=== PATIENT | female | born 1975 | race Caucasian/White ===

== ENCOUNTER 2018-10-12 18:54 | Emergency (ER) | payer SELFPAY ==
[2018-10-12 19:45] VITALS: BP 124/58
[2018-10-12 20:08] LABS: APPEARANCE,URINE SLIGHTLY-CLOUDY; BILIRUBIN,URINE NEGATIVE (NEGATIVE); COLOR,URINE YELLOW; GLUCOSE, URINE NEGATIVE (NEGATIVE); KETONES,URINE NEGATIVE (NEGATIVE); LEUKOCYTE ESTERASE,URINE SMALL (NEGATIVE); NITRITE,URINE NEGATIVE (NEGATIVE); PROTEIN,URINE NEGATIVE (NEGATIVE); URINE SPECIFIC GRAVITY 1.024
--- NOTE | 2018-10-12 20:32 | ER Document Report ---
ED GI/ - General Chief Complaint: Urinary Problem Stated Complaint: URINARY ISSUE Time Seen by Provider: 10/12/18 19:52 Primary Care Provider: [facility] [Provider Group] - Follow up as needed Mode of Arrival: Ambulatory Information source: Patient Notes: 43-year-old female presents to ED for complaint of burning frequency and urgency with urine for 2 weeks. She states she has had a lot of vaginal irritation. She states she has not had any vaginal discharge she is just had severe vaginal itching and burning. She states she uses a vaginal douche monthly and has for her whole life. She states she has not been physically active for about 2 months. She states she moved to [place] in the beginning of August and does not have a [facility] care doctor has not been to a doctor. TRAVEL OUTSIDE OF THE [place] IN LAST 30 DAYS: No - HPI Patient complains to provider of: Vaginal pain, Other - Burning pain and irritation with urination times 2 weeks Onset: Other Timing/Duration: Gradual - 2 weeks, Worse Quality of pain: Burning Severity at maximum: Severe Severity in ED: Severe Pain Level: 5 Location: Vaginal Vaginal bleeding (Compared to normal period): None Associated symptoms: Urinary frequency, Other - Vaginal pain and burning worse with urination Exacerbated by: Other - Urination Relieved by: Denies Similar symptoms previously: Yes Recently seen / treated by doctor: No - Related Data Allergies/Adverse Reactions: No Known Allergies Allergy (Unverified 10/12/18 18:57) Past Medical History - General Information source: Patient - Social History Smoking Status: Never Smoker Frequency of alcohol use: None Drug Abuse: None Occupation: none Lives with: Family - daughter Family History: Reviewed & Not Pertinent Patient has suicidal ideation: No Patient has homicidal ideation: No - Past Medical History Cardiac Medical History: Reports: None Pulmonary Medical History: Reports: None EENT Medical History: Reports: None Neurological Medical History: Reports: None Endocrine Medical History: Reports: None Renal/ Medical History: Reports: None Malignancy Medical History: Reports: None GI Medical History: Reports: None Musculoskeletal Medical History: Reports None Skin Medical History: Reports None Psychiatric Medical History: Reports: None Traumatic Medical History: Reports: None Infectious Medical History: Reports: None Past Surgical History: Reports: Hx Gastric Bypass Surgery - Immunizations Immunizations up to date: Yes Hx Diphtheria, Pertussis, Tetanus Vaccination: Yes Review of Systems - Review of Systems Constitutional: No symptoms reported EENT: No symptoms reported Cardiovascular: No symptoms reported Respiratory: No symptoms reported Gastrointestinal: No symptoms reported Genitourinary: Burning, Frequency Female Genitourinary: Other - vaginal burning and irritation Musculoskeletal: No symptoms reported Skin: No symptoms reported Hematologic/Lymphatic: No symptoms reported Neurological/Psychological: No symptoms reported -: Yes All other systems reviewed and negative Physical Exam - Vital signs Vitals: Temp Pulse Resp BP Pulse Ox 98.8 F 92 16 124/58 L 100 10/12/18 19:38 10/12/18 19:38 10/12/18 19:38 10/12/18 19:38 10/12/18 19:38 Interpretation: Normal - General General appearance: Appears well, Alert - HEENT Head: Normocephalic, Atraumatic Eyes: Normal Pupils: PERRL - Respiratory Respiratory status: No respiratory distress Chest status: Nontender Breath sounds: Normal Chest palpation: Normal - Cardiovascular Rhythm: Regular Heart sounds: Normal auscultation Murmur: No - Abdominal Inspection: Normal Distension: No distension Bowel sounds: Normal Tenderness: Nontender Organomegaly: No organomegaly - Genitourinary External exam: Other - Erythematous Speculum exam: Normal, Cervix closed. No: Vaginal discharge, Lesions Vaginal bleeding: Mild Bimanuel exam: Normal - Back Back: Normal, Nontender - Extremities General upper extremity: Normal inspection, Nontender, Normal color, Normal ROM, Normal temperature General lower extremity: Normal inspection, Nontender, Normal color, Normal ROM, Normal temperature, Normal weight bearing. No: Kg's sign - Neurological Neuro grossly intact: Yes Cognition: Normal Orientation: AAOx4 Darshan Coma Scale Eye Opening: Spontaneous Darshan Coma Scale Verbal: Oriented Darshan Coma Scale Motor: Obeys Commands Darshan Coma Scale Total: 15 Speech: Normal Motor strength normal: LUE, RUE, LLE, RLE Sensory: Normal - Psychological Associated symptoms: Normal affect, Normal mood - Skin Skin Temperature: Warm Skin Moisture: Dry Skin Color: Normal Course - Re-evaluation Re-evalutation: 10/12/18 22:37 Dr. reyes recommended Premarin cream and 1% hydrocortisone to the vaginal area for her discomfort. Patient was given these recommendations as well as list of local doctors and [facility] CARE WORKER providers. Patient was also instructed to please stop using her douche every month. She was also instructed to use fragrance free soaps to this area. Patient was discharged home. - Vital Signs Vital signs: Temp Pulse Resp BP Pulse Ox 98.8 F 92 16 124/58 L 100 10/12/18 19:38 10/12/18 19:38 10/12/18 19:38 10/12/18 19:38 10/12/18 19:38 - Laboratory Laboratory results interpreted by me: 10/12/18 19:40 Urine Urobilinogen 4.0 H Ur Leukocyte Esterase SMALL H Discharge - Discharge Clinical Impression: Vaginal irritation Condition: Stable Disposition: HOME, SELF-CARE Instructions: Family Physicians / Practices Additional Instructions: You were seen today for vaginal irritation. Your urine was negative for a UTI. Your wet mount was negative for bacterial vaginosis, Trichomonas, or yeast infection. I have also sent a swab for gonorrhea and chlamydia these would not be back for about 2-1/2 hours. I will not be here at that time. I will be back tomorrow from 9 AM to 9 PM. You can call me at [phone] and asked to speak to Popeye and I will give you the results. Written you a prescription for Premarin vaginal cream which should help with the irritation. He can also use hydrocortisone cream 1% which is [id number]. Please do not use any scented soaps in this area. Please stop using vaginal douches as this is killing all of the helpful bacteria in the area. I have given you a list of the local primary doctors and the DIRECTOR EXPORT in the area for follow-up. Vaginal estrogen therapy Low-dose vaginal estrogen is the most effective treatment for moderate to severe symptoms of vaginal atrophy. Use of estrogen therapy is appropriate for women with symptoms of vaginal atrophy in the setting of low estrogen levels, provided that there are no contraindications to this therapy (eg, some women with estrogen-dependent tumors). Adequate estrogen therapy leads to uatsdin of the normal vaginal acidic pH and microflora, thickening of the epithelium, increased vaginal secretions, and decreased vaginal dryness and resultant dyspareunia. In addition, estrogen therapy is associated with urinary tract benefits. These include a reduction in the incidence of urinary tract infections and overactive bladder symptoms. Urgency and stress urinary incontinence, however, do not improve with estrogen therapy alone . Adverse effects of vaginal estrogen therapy are uncommon. Women may complain of vaginal irritation, vaginal bleeding, or breast tenderness. FOLLOW-UP CARE: If you have been referred to a physician for follow-up care, call the physicians office for an appointment as you were instructed or within the next two days. If you experience worsening or a significant change in your symptoms, notify the physician immediately or return to the Emergency Department at any time for re-evaluation. Prescriptions: Estrogens,Conjugated [Premarin Vaginal Cream (0.625 mg/gm) 30 gm] 30 gm VG QHS #1 tube Referrals: [facility] [Provider Group] - Follow up as needed
[2018-10-12 21:11] LABS: EPITHELIALS (WET MOUNT) 3+ EPITHELIALS SEEN; T.VAGINALIS (WET MOUNT) NO TRICHOMONAS SEEN; WBCS (WET MOUNT) RARE WBCS SEEN; YEAST (WET MOUNT) NO YEAST SEEN
[2018-10-12 22:33] LABS: CHLAM PCR NOT DETECTED (NOT DETECT); GON PCR NOT DETECTED (NOT DETECT)
== END 2018-10-12 21:34 | disposition home or self-care (01) ==
LOC: ER 18:54
DX: R10.2 Pelvic and perineal pain (principal); R30.0 Dysuria; L29.9 Pruritus, unspecified; R35.0 Frequency of micturition; R39.15 Urgency of urination; Z98.84 Bariatric surgery status
CPT/HCPCS: 81001; 87210; 87491; 87591; 99283

== ENCOUNTER 2018-10-20 16:12 | Emergency (ER) | payer SELFPAY ==
--- NOTE | 2018-10-20 18:42 | ER Document Report ---
ED Medical Screen (RME) - General Chief Complaint: Vaginal Pain Stated Complaint: VAGINAL PAIN Time Seen by Provider: 10/20/18 18:28 Notes: 43 female who was here on October 12 for vaginal burning and itching comes back to the emergency department with no relief from her symptoms. Patient was prescribed Premarin cream and told to put hydrocortisone on her labia and she states that hydrocortisone made it worse and the Premarin cream is not working. She is still complaining of acute itching and burning sensation. She states her labia feel "hard like when you get scabs". She denies fever, chills, nausea, vomiting, urinary symptoms, vaginal discharge, vaginal bleeding. I have greeted and performed a rapid initial assessment of this patient. A comprehensive ED assessment and evaluation of the patient, analysis of test results and completion of medical decision making process will be conducted by an additional ED providers. TRAVEL OUTSIDE OF THE [place] IN LAST 30 DAYS: No - Related Data Allergies/Adverse Reactions: No Known Allergies Allergy (Verified 10/20/18 16:13) Past Medical History - Social History Frequency of alcohol use: None Drug Abuse: None - Past Medical History Cardiac Medical History: Reports: Hx Hypercholesterolemia, Hx Hypertension Endocrine Medical History: Reports: Hx Diabetes Mellitus Type 2 - borderline Renal/ Medical History: Denies: Hx Peritoneal Dialysis Past Surgical History: Reports: Hx Abdominal Surgery - gastric bypass, Hx Gastric Bypass Surgery, Hx Tonsillectomy - Immunizations Immunizations up to date: Yes Hx Diphtheria, Pertussis, Tetanus Vaccination: Yes Physical Exam - Vital signs Vitals: Temp Pulse Resp BP Pulse Ox 98.7 F 95 16 116/72 100 10/20/18 16:23 10/20/18 16:23 10/20/18 16:23 10/20/18 16:23 10/20/18 16:23 Course - Vital Signs Vital signs: Temp Pulse Resp BP Pulse Ox 98.7 F 95 16 116/72 100 10/20/18 16:23 10/20/18 16:23 10/20/18 16:23 10/20/18 16:23 10/20/18 16:23
[2018-10-20 20:05] VITALS: BP 126/70
--- NOTE | 2018-10-20 20:47 | ER Document Report ---
HPI - HPI Patient complains to provider of: Labial itching Time Seen by Provider: 10/20/18 18:28 Onset: Other - 3 weeks Onset/Duration: Worse Quality of pain: Burning Pain Level: 5 Context: Patient presents with a 3-week history of itching and burning to the labia. Patient denies any new foods medications or detergents. Patient states she was seen here for this problem 8 days ago was given a prescription of Premarin cream as well as advised to use [id number] steroid cream. Patient states that the steroid medication made her symptoms worsen so she stopped it 2 days ago. Patient denies any improvement with the Premarin cream. Associated Symptoms: denies: Fever Exacerbated by: Denies Relieved by: Denies Similar symptoms previously: No Recently seen / treated by doctor: Yes - ROS ROS below otherwise negative: Yes Systems Reviewed and Negative: Yes All other systems reviewed and negative - CONSTITUTIONAL Constitutional: DENIES: Fever - REPRODUCTIVE Reproductive: DENIES: : - DERM Skin Color: Erythema Skin Problems: Rash Past Medical History - General Information source: Patient - Social History Smoking Status: Never Smoker Frequency of alcohol use: None Drug Abuse: None Occupation: none Lives with: Family Family History: Reviewed & Not Pertinent Patient has suicidal ideation: No Patient has homicidal ideation: No Renal/ Medical History: Denies: Hx Peritoneal Dialysis Past Surgical History: Reports: Hx Abdominal Surgery - gastric bypass, Hx Gastric Bypass Surgery, Hx Tonsillectomy - Immunizations Immunizations up to date: Yes Hx Diphtheria, Pertussis, Tetanus Vaccination: Yes Vertical Provider Document - CONSTITUTIONAL Agree With Documented VS: Yes Exam Limitations: No Limitations General Appearance: WD/WN, No Apparent Distress - INFECTION CONTROL TRAVEL OUTSIDE OF THE [place] IN LAST 30 DAYS: No - HEENT HEENT: Atraumatic, Normocephalic - NECK Neck: Normal Inspection - RESPIRATORY Respiratory: Breath Sounds Normal, No Respiratory Distress - CARDIOVASCULAR Cardiovascular: Regular Rate, Regular Rhythm - REPRODUCTIVE Female Genitalia: Abnormal Inspection - Patient with mild erythema, tenderness and chapped appearance to the labia minora, no obvious ulcerations - BACK Back: Normal Inspection - MUSCULOSKELETAL/EXTREMETIES Musculoskeletal/Extremeties: ANDRES BROCK - NEURO Level of Consciousness: Awake, Alert, Appropriate Motor/Sensory: No Motor Deficit - DERM Integumentary: Warm, Dry Course - Re-evaluation Re-evalutation: 10/20/18 20:[address] Herrera who recommends treating with nystatin and referring to [facility] for further evaluation. - Vital Signs Vital signs: Temp Pulse Resp BP Pulse Ox 98.7 F 80 18 126/70 H 100 10/20/18 20:02 10/20/18 20:02 10/20/18 20:02 10/20/18 20:02 10/20/18 20:02 Discharge - Discharge Clinical Impression: Labial irritation Condition: Stable Disposition: HOME, SELF-CARE Instructions: Topical Antifungal ([facility]) Additional Instructions: Return immediately for any new or worsening symptoms Followup with your primary care provider, call tomorrow to make a followup appointment Follow-up with a [facility] provider for recheck Prescriptions: Nystatin [Mycostatin Cream 15 gm] 1 applic TP BID #30 gm Referrals: [facility] [Provider Group] - Follow up as needed [facility] [Provider Group] - Follow up as needed [facility] [Provider Group] - Follow up tomorrow
[2018-10-20] MEDS ORDERED: FLUCONAZOLE 100 MG TABLET PO ONE (21:13)
== END 2018-10-20 21:23 | disposition home or self-care (01) ==
LOC: ER 16:12
DX: R21 Rash and other nonspecific skin eruption (principal); R20.8 Other disturbances of skin sensation
CPT/HCPCS: 82962; 87250; 99283

== ENCOUNTER 2019-03-14 09:04 | Emergency (ER) | payer SELFPAY ==
[2019-03-14] MEDS ORDERED: ACETAMINOPHEN 325 MG TABLET PO ONE (10:02)
--- NOTE | 2019-03-14 10:04 | ER Document Report ---
ED Medical Screen (RME) - General Chief Complaint: Abdominal Pain Stated Complaint: ABDOMINAL PAIN,VOMITING Time Seen by Provider: 03/14/19 09:57 Mode of Arrival: Ambulatory Information source: Patient Notes: Patient presents to the emergency department with complaints of epigastric pain for the last week. Reports history of gastric bypass 4 years ago. Reports since that time she has had trouble with bleeding ulcers. She reports she has been evaluated and treated for these ulcers at [facility]. She reports it is normal for her to vomit on a regular basis. She is noted some blood in it for the last for 5 days but not as bad as it usually is. Patient just moved to [place] and does not have a primary care provider yet. Denies fever diarrhea. I have greeted and performed a rapid initial assessment of this patient. A comprehensive ED assessment and evaluation of the patient, analysis of test results and completion of the medical decision making process will be conducted by additional ED providers. Dictation of this chart was performed using voice recognition software; therefore, there may be some unintended grammatical errors. TRAVEL OUTSIDE OF THE [place] IN LAST 30 DAYS: No - Related Data Allergies/Adverse Reactions: lidocaine Allergy (Verified 03/14/19 10:00) tetanus immune globulin Allergy (Verified 03/14/19 10:00) Past Medical History - Past Medical History Cardiac Medical History: Reports: Hx Hypercholesterolemia, Hx Hypertension Endocrine Medical History: Reports: Hx Diabetes Mellitus Type 2 - borderline Renal/ Medical History: Denies: Hx Peritoneal Dialysis Past Surgical History: Reports: Hx Abdominal Surgery - gastric bypass, Hx Gastric Bypass Surgery, Hx Tonsillectomy - Immunizations Immunizations up to date: Yes Hx Diphtheria, Pertussis, Tetanus Vaccination: Yes Physical Exam - Vital signs Vitals: Temp Pulse Resp BP Pulse Ox 98.0 F 92 16 136/69 H 98 03/14/19 09:20 03/14/19 09:20 03/14/19 09:20 03/14/19 09:20 03/14/19 09:20 Course - Vital Signs Vital signs: Temp Pulse Resp BP Pulse Ox 98.0 F 92 16 136/69 H 98 03/14/19 09:20 03/14/19 09:20 03/14/19 09:20 03/14/19 09:20 03/14/19 09:20
[2019-03-14 10:43] LABS: ABSOLUTE BASOPHILS # (AUTO) 0.1 10^3/uL (0.0-0.2); ABSOLUTE EOSINOPHILS # (AUTO) 0.1 10^3/uL (0.0-0.6); ABSOLUTE LYMPHOCYTES (AUTO) 1.8 10^3/uL (0.5-4.7); ABSOLUTE MONOCYTES (AUTO) 0.4 10^3/uL (0.1-1.4); ABSOLUTE NEUT (AUTO) 4.1 10^3/uL (1.7-8.2); BASOPHILS % (AUTO) 1.4 % (0-2); EOSINOPHILS % (AUTO) 0.8 % (0-6); HEMATOCRIT 27.3 % (36.0-47.0); MEAN CORPUSCULAR HEMOGLOBIN 16.6 pg (27.0-33.4); MEAN CORPUSCULAR HGB CONC 29.2 g/dL (32.0-36.0); MONOCYTES % (AUTO) 6.4 % (3-13); PLATELET COUNT 691 10^3/uL (150-450); RED BLOOD COUNT 4.79 10^6/uL (3.72-5.28); RED CELL DISTRIBUTION WIDTH 20.3 % (11.5-14.0); SEGMENTED NEUTROPHILS % (AUTO) 63.4 % (42-78); TOTAL CELLS COUNTED % (AUTO) 100 %; WHITE BLOOD COUNT 6.5 10^3/uL (4.0-10.5)
[2019-03-14 10:44] LABS: APPEARANCE,URINE SLIGHTLY-CLOUDY; BILIRUBIN,URINE SMALL (NEGATIVE); COLOR,URINE YELLOW; GLUCOSE, URINE NEGATIVE (NEGATIVE); KETONES,URINE TRACE mg/dL (NEGATIVE); LEUKOCYTE ESTERASE,URINE MODERATE (NEGATIVE); NITRITE,URINE NEGATIVE (NEGATIVE); PROTEIN,URINE NEGATIVE (NEGATIVE); URINE SPECIFIC GRAVITY 1.041; UROBILINOGEN,URINE NEGATIVE mg/dL (<2.0)
[2019-03-14 10:50] LABS: MEAN CORPUSCULAR VOLUME 57 fl (80-97)
[2019-03-14 11:00] LABS: ALANINE AMINOTRANSFERASE 19 U/L (9-52); ALBUMIN 4.3 g/dL (3.5-5.0); ALKALINE PHOSPHATASE 70 U/L (38-126); ANION GAP 9 (5-19); ASPARTATE AMINO TRANSFERASE 29 U/L (14-36); BILIRUBIN,DIRECT 0.2 mg/dL (0.0-0.4); BILIRUBIN,TOTAL 0.7 mg/dL (0.2-1.3); BLOOD UREA NITROGEN 11 mg/dL (7-20); CARBON DIOXIDE 26 mmol/L (22-30); CHLORIDE 105 mmol/L (98-107); GLUCOSE 100 mg/dL (75-110); LIPASE 62.3 U/L (23-300); POTASSIUM 4.7 mmol/L (3.6-5.0); SODIUM 139.6 mmol/L (137-145); TOTAL PROTEIN 7.1 g/dL (6.3-8.2)
[2019-03-14 11:08] LABS: ANISOCYTOSIS 3+; HYPOCHROMASIA 1+
[2019-03-14 11:09] LABS: OVALOCYTES 1+; PLATELET COMMENT INCREASED; POIKILOCYTOSIS 2+; SCHISTOCYTES 1+; TARGET CELLS SLIGHT
--- NOTE | 2019-03-14 13:27 | ER Document Report ---
ED GI/ - General Chief Complaint: Abdominal Pain Stated Complaint: ABDOMINAL PAIN,VOMITING Time Seen by Provider: 03/14/19 09:57 Primary Care Provider: GEORGI LESLIE MD [ACTIVE STAFF] - Follow up as needed RANJITH OROZCO MD [ACTIVE STAFF] - Follow up as needed Mode of Arrival: Ambulatory Notes: Patient is here to be evaluated for abdominal pain that she said is been bothering her off and on since she had gastric bypass surgery in March 2015. She has pain and she has had problems with ulcers in the past. She had her primary surgery as well as follow-up care for several years at [facility] in [place]. She left that area and moved here in this past August. She did not get any of her medical records to bring with her. She did not get any medications before coming here. And she says that her current symptoms are the same that she is been having off and on for several years. Patient is not sure when she had last blood work and imaging done prior to her moving here. Patient has had nausea and occasional vomiting. She has not had any constipation. Has never seen any blood in her stools. Has not had any maroon appearing stools. Has not had any black, tarry stools. Patient pain in her abdomen is not localized, but located diffusely. She has not noted any fever. She has never had to get a blood transfusion. Patient says that she has lost about 160 pounds since she had her original surgery. Patient is currently on no medications at all. TRAVEL OUTSIDE OF THE [place] IN LAST 30 DAYS: No - Related Data Allergies/Adverse Reactions: lidocaine Allergy (Verified 03/14/19 10:00) tetanus immune globulin Allergy (Verified 03/14/19 10:00) Past Medical History - General Information source: Patient - Social History Smoking Status: Never Smoker Frequency of alcohol use: None Drug Abuse: None Lives with: Spouse/Significant other Family History: Reviewed & Not Pertinent Patient has suicidal ideation: No Patient has homicidal ideation: No - Past Medical History Cardiac Medical History: Reports: Hx Hypercholesterolemia, Hx Hypertension Endocrine Medical History: Reports: Hx Diabetes Mellitus Type 2 - borderline Past Surgical History: Reports: Hx Abdominal Surgery - gastric bypass, Hx Gastric Bypass Surgery, Hx Tonsillectomy - Immunizations Immunizations up to date: Yes Hx Diphtheria, Pertussis, Tetanus Vaccination: Yes Review of Systems - Review of Systems Notes: REVIEW OF SYSTEMS: CONSTITUTIONAL : Denies fever. Does not feel especially tired. Vital signs were all normal. No tachycardia. EENT: Denies eye, ear, nose or mouth or throat pain or other symptoms. CARDIOVASCULAR: Denies chest pain. RESPIRATORY: Denies cough, chest congestion, or shortness of breath. GASTROINTESTINAL: See HPI. GENITOURINARY: Denies difficulty or painful urinating, urinary frequency, blood in urine. MUSCULOSKELETAL: Denies back or neck pain. Denies joint pain or swelling. SKIN: Denies rash or skin lesions. NEUROLOGICAL: Denies LOC or altered mental status. Denies headache. Denies sensory loss or motor deficits. ALL OTHER SYSTEMS REVIEWED AND NEGATIVE. Physical Exam - Vital signs Vitals: Temp Pulse Resp BP Pulse Ox 98.0 F 92 16 136/69 H 98 03/14/19 09:20 03/14/19 09:20 03/14/19 09:20 03/14/19 09:20 03/14/19 09:20 Interpretation: Normal Notes: P PHYSICAL EXAMINATION: GENERAL: Well-appearing, in no acute distress. Vital signs are all essentially normal. Rakesh is able to slowly move from recumbent to sitting up and standing at the bedside. She walks very hesitantly as if she is in pain. She says is been this way for almost 4 years. HEAD: Atraumatic, normocephalic. EYES: Pupils equal round and reactive to light, extraocular movements intact. ENT: oropharynx clear without exudates. Moist mucous membranes. NECK: Normal range of motion, supple. LUNGS: Breath sounds clear and equal bilaterally. HEART: Regular rate and rhythm without murmurs. ABDOMEN: Soft, diffuse tenderness without any localized tenderness. No guarding and no rebound present. No masses felt. No bruits heard. BACK: No tenderness throughout entire back. EXTREMITIES: Normal range of motion without pain. NEUROLOGICAL: Normal speech, normal gait. Normal sensory, motor, and reflex exams. Awake, alert, and oriented x3. Cranial nerves normal. PSYCH: Normal mood, normal affect. SKIN: Warm, dry, no rashes. Course - Re-evaluation Re-evalutation: 03/14/19 18:52 Patient's hemoglobin of 8.0 is concerning, but the patient does not behave as if someone was losing blood rapidly. She is not tachycardic and she is not hypotensive. Additionally, patient says she is never seen any black stools, maroon stools, or blood in her stools. Another point is that the patient is never had to be transfused. I called the patient's primary care provider back in [place] and was able to find out the patient had a hemoglobin of 10.7 in May 2 years ago. I advised the patient that I would recommend getting a repeat lead count tomorrow and see if there is been a significant change. Of course, if patient has any indication that she is losing blood between now and tomorrow, she should come back here immediately and so explained to her. She is going get an outpatient CBC and call me for the results. Assuming that the hemoglobin remained stable, I have advised the patient that she needs to find a field nurse case manager to see her and take care of her. I have also very definitively told the patient that were not going to be providing pain medications on a regular basis and that she will need to have a primary care provider who does that. I have offered her a dozen Percocets to hold her in the meantime. She is agreeable with that plan. - Vital Signs Vital signs: Temp Pulse Resp BP Pulse Ox 98.2 F 92 15 136/72 H 99 03/14/19 14:12 03/14/19 14:12 03/14/19 14:12 03/14/19 14:12 03/14/19 14:12 - Laboratory Result Diagrams: 03/14/19 10:20 03/14/19 10:20 Laboratory results interpreted by me: 03/14/19 03/14/19 10:20 10:20 Hgb 8.0 L Hct 27.3 L MCV 57 L MCH 16.6 L MCHC 29.2 L RDW 20.3 H Plt Count 691 H Urine Ketones TRACE H Urine Bilirubin SMALL H Ur Leukocyte Esterase MODERATE H Discharge - Discharge Clinical Impression: Abdominal pain, History of gastric bypass, Anemia Condition: Stable Disposition: HOME, SELF-CARE Additional Instructions: ABDOMINAL PAIN: There are many causes of abdominal pain. Pain can mean a serious problem requiring surgery (such as appendicitis). It can also be an innocent problem that goes away on its own (such as a viral infection). Often, time must pass to determine the cause of pain. The physician does not feel that hospitalization is necessary, at present. Things may change within the next 24 hours. Call the doctor or come back for re- examination if any problems occur, such as: (1) Pain that becomes more severe, steady, or becomes concentrated in one specific area. Also, pain that is more severe with movement or coughing. (2) Vomiting that persists or becomes more frequent. (3) Blood in the vomitus, urine, or bowel movements. Blood in the stool ma y have a tarry or black appearance. (4) Shaking chills or fever greater than 100 degrees F. (5) The abdomen becomes more distended or swollen. (6) Bowel movements cease. (7) Failure to improve as expected. NORMAL EXAM AND WORKUP: At this time, except for your low hemoglobin and anemia, and for some white cells in your urine, your examination and workup show no significant abnormality. No significant abnormal physical findings are noted. All laboratory, EKG, and imaging (x-ray, CT scans, ultrasound) studies that were ordered show no significant abnormality. Although your examination and all studies that were ordered showed no significant abnormal finding, there are no examinations and no studies that are 100% accurate. There is always the possibility that some abnormality could exist and not be detected with physical examination or within the limits and capabilities of laboratory and other studies. You should return or follow up as you were instructed on your visit today for further evaluation if your symptoms do not resolve. ANTINAUSEA MEDICATION: You have been given a medication to suppress nausea and vomiting. This type of medication can be given as a shot, pill, or suppository. It will usually last for many hours. Pills and shots usually last six to eight hours, suppositories last about 12 hours. For the typical illness, only one or two doses of the medication may be necessary. Mild lightheadedness may occur. This type of medicine can cause drowsiness. Do not drive or operate dangerous machinery while under its i nfluence. Do not mix with alcohol. See your doctor at once if you have muscle spasms or tightness, or uncontrollable motions (particularly of the neck, mouth, or jaw). Persistent vomiting or severe lightheadedness should also be evaluated by the physician. ORAL NARCOTIC MEDICATION: You have been given a prescription for pain control. This medication is a narcotic. It's best taken with food, as nausea can result if taken on an empty stomach. Don't operate machinery or drive within six hours of taking this medication. Do not combine this medicine with alcohol, or with any medication which can cause sedation (such as cold tablets or sleeping pills) unless you get permission from the physician. Narcotics tend to cause constipation. If possible, drink plenty of fluids and eat a diet high in fiber and fruits. Please be aware that prescription narcotics also have the potential for abuse. People become addicted to these medications because of the general sense of wellbeing that they induce. This feeling along with a significant reduction in tension, anxiety, and aggression provides a stimulating seductive quality to these drugs. Once your pain is under control, we encourage you to discard your unused narcotics. Take Tylenol for your milder pain and reserve the Percocet tablets for more severe pain. FOLLOW-UP CARE: If you have been referred to a physician for follow-up care, call the physicians office for an appointment as you were instructed or within the next two days. If you experience worsening or a significant change in your symptoms, notify the physician immediately or return to the Emergency Department at any time for re-evaluation. Anemia, Iron Deficiency You have anemia (a lower than normal amount of red blood cells). Our tests show it's due to lack of iron in your body. In infants and children, iron deficiency is usually due to lack of iron in the diet. In adults, it's most often caused by blood loss (heavy periods or intestinal bleeding) or by . If the cause of iron deficiency is not clear, we evaluate for hidden intestinal bleeding. Another possible cause is failure to absorb iron properly. Iron-deficiency is treated with iron supplements. Iron pills can upset your stomach and cause constipation. Taking it with food decreases nausea. Expect the stool to become darker (but not black). Taking iron with a juice high in vitamin C (orange juice, tomato juice) increases absorption. You can increase your dietary iron by eating liver, oysters, and lean beef; wheat germ, peas, and lentils; and molasses, dried prunes, spinach, and broccoli. Contact the doctor at once if you note black or tarry-looking stools, bloody vomiting, shortness of breath, chest pain, or faintness. Get a blood test to check your hemoglobin done again tomorrow morning and call me for the results. We will decide then whether you need to return for a transfusion or not. You need to follow-up with a field nurse case manager. There is a major bariatric surgery center at [facility] in [facility]. They also do gastric bypass surgery at [facility] in [place]. Alternative places to be seen for your ongoing problems would be the [facility] or [facility] at [facility]. I do not have any gastroenterology vice president of operations for us in the emergency room today. Prescriptions: Ondansetron HCl [Zofran 4 mg Tablet] 1 - 2 tab PO Q4H PRN #10 tablet PRN Reason: Oxycodone HCl/Acetaminophen [Percocet 5-325 mg Tablet] 1 - 2 tab PO Q4H PRN #12 tablet PRN Reason: Forms: Follow-Up Laboratory Testing, Return to Work Referrals: GEORGI LESLIE MD [ACTIVE STAFF] - Follow up as needed RANJITH OROZCO MD [ACTIVE STAFF] - Follow up as needed
[2019-03-14 14:12] VITALS: BP 136/72
[2019-03-15 12:33] LABS: PATH REVIEW PATHOLOGIST REVIEWED
== END 2019-03-14 14:12 | disposition home or self-care (01) ==
LOC: ER 09:04
DX: R10.9 Unspecified abdominal pain (principal); D64.9 Anemia, unspecified; R11.2 Nausea with vomiting, unspecified; Z98.84 Bariatric surgery status; E78.00 Pure hypercholesterolemia, unspecified; I10 Essential (primary) hypertension; R73.03 Prediabetes
CPT/HCPCS: 36415; 80053; 81001; 81025; 83690; 85025; 87086; 87088; 99284

== ENCOUNTER → 2019-03-15 | Outpatient (CLI) | payer SELFPAY ==
[2019-03-15 09:12] LABS: ABSOLUTE BASOPHILS # (AUTO) 0.1 10^3/uL (0.0-0.2); ABSOLUTE EOSINOPHILS # (AUTO) 0.1 10^3/uL (0.0-0.6); ABSOLUTE LYMPHOCYTES (AUTO) 1.9 10^3/uL (0.5-4.7); ABSOLUTE MONOCYTES (AUTO) 0.4 10^3/uL (0.1-1.4); BASOPHILS % (AUTO) 0.9 % (0-2); EOSINOPHILS % (AUTO) 1.4 % (0-6); HEMATOCRIT 26.1 % (36.0-47.0); LYMPHOCYTES % (AUTO) 25.9 % (13-45); MEAN CORPUSCULAR HEMOGLOBIN 16.8 pg (27.0-33.4); MEAN CORPUSCULAR HGB CONC 29.7 g/dL (32.0-36.0); MEAN CORPUSCULAR VOLUME 57 fl (80-97); MONOCYTES % (AUTO) 5.4 % (3-13); PLATELET COUNT 676 10^3/uL (150-450); RED BLOOD COUNT 4.61 10^6/uL (3.72-5.28); RED CELL DISTRIBUTION WIDTH 19.7 % (11.5-14.0); SEGMENTED NEUTROPHILS % (AUTO) 66.4 % (42-78); TOTAL CELLS COUNTED % (AUTO) 100 %; WHITE BLOOD COUNT 7.5 10^3/uL (4.0-10.5)
[2019-03-15 09:42] LABS: ANISOCYTOSIS 2+; HYPOCHROMASIA 4+; POIKILOCYTOSIS 2+
[2019-03-15 09:43] LABS: OVALOCYTES 2+; PLATELET COMMENT INCREASED; SCHISTOCYTES 1+; TARGET CELLS SLIGHT
[2019-03-15 09:46] LABS: HEMOGLOBIN 7.7 g/dL (12.0-15.5)
== END ==
LOC: LAB 08:51
PROVIDERS: ATTEND Emergency Medicine
DX: D64.9 Anemia, unspecified (principal); R10.9 Unspecified abdominal pain
CPT/HCPCS: 36415; 85025

== ENCOUNTER 2019-03-16 10:46 | Emergency (ER) | payer SELFPAY ==
--- NOTE | 2019-03-16 11:07 | ER Document Report ---
ED Medical Screen (RME) - General Chief Complaint: Abnormal Lab Results Stated Complaint: ABNORMAL LABS Time Seen by Provider: 03/16/19 11:01 TRAVEL OUTSIDE OF THE [place] IN LAST 30 DAYS: No - HPI Notes: 03/16/19 11:13 44-year-old female presents to the ED for evaluation of weakness, epigastric abd pain, jyoti umbilical abd pain, slight chest heaviness, vomiting with recent hx of low H&H. Patient was sent by primary care provider, Dr. Rivero, this morning and advised to come to the emergency room due to concern of her CBC. Hemoglobin was 7.7, hematocrit was 25.8. she was evaluated in the ER approximately 2 days ago in the ER for anemia, was advised to follow-up with primary care provider to monitor trends and H&H, did not need a blood transfusion at that time. Patient reports she has a history of gastric ulcers in the past, reports she does vomit, denies coffee-ground emesis, denies any black tarry stools. Last BM was yesterday. Patient reports she recently had abdominal surgery in August for gastric ulcers at [facility], does not have any medical records with her. Patient denies being on a PPI. Patient states she is advised by a recreation technician to not take a PPI. Denies fevers, chills, chest pain,palpitations, shortness of breath, dyspnea, nausea, diarrhea, hematuria,blurred vision,LH, dizziness, syncope, headaches. I have greeted and performed a rapid initial assessment of this patient. A comprehensive ED assessment and evaluation of the patient, analysis of test results and completion of the medical decision making process will be conducted by additional ED providers. PHYSICAL EXAMINATION: HEAD: Atraumatic, normocephalic. EYES: Pupils equal round extraocular movements intact, conjunctiva are normal. ENT: Nares patent NECK: Normal range of motion LUNGS: No respiratory distress ABD: Sounds present in all quadrants, RUQ, LUQ and epigastric tenderness on palpation, no CVA tenderness bilaterally Musculoskeletal: Normal range of motion NEUROLOGICAL: Normal speech, normal gait. PSYCH: Normal mood, normal affect. SKIN: Warm, Dry, normal turgor, no rashes or lesions noted. I have greeted and performed a rapid initial assessment of this patient. A comprehensive ED assessment and evaluation of the patient, analysis of test results and completion of medical decision making process will be conducted by an additional ED providers. - Related Data Allergies/Adverse Reactions: lidocaine Allergy (Verified 03/16/19 10:48) tetanus immune globulin Allergy (Verified 03/16/19 10:48) Past Medical History - Past Medical History Cardiac Medical History: Reports: Hx Hypercholesterolemia, Hx Hypertension Endocrine Medical History: Reports: Hx Diabetes Mellitus Type 2 - borderline Renal/ Medical History: Denies: Hx Peritoneal Dialysis Past Surgical History: Reports: Hx Abdominal Surgery - gastric bypass, Hx Gastric Bypass Surgery, Hx Tonsillectomy - Immunizations Immunizations up to date: Yes Hx Diphtheria, Pertussis, Tetanus Vaccination: Yes Physical Exam - Vital signs Vitals: Temp Pulse Resp BP Pulse Ox 97.8 F 87 18 143/80 H 100 03/16/19 10:59 03/16/19 10:59 03/16/19 10:59 03/16/19 10:59 03/16/19 10:59 Course - Vital Signs Vital signs: Temp Pulse Resp BP Pulse Ox 97.8 F 87 18 143/80 H 100 03/16/19 10:59 03/16/19 10:59 03/16/19 10:59 03/16/19 10:59 03/16/19 10:59
[2019-03-16] MEDS ORDERED: METOCLOPRAMIDE HCL ORAL SOLN 10 MG/10 ML UDCUP PO ONE (11:09)
[2019-03-16] MEDS ORDERED: MAG HYDROX/AL HYDROX/SIMETH SUSP 30 ML UDCUP PO ONE (11:09)
[2019-03-16 12:06] LABS: ALANINE AMINOTRANSFERASE 18 U/L (9-52); ALBUMIN 4.6 g/dL (3.5-5.0); ALKALINE PHOSPHATASE 78 U/L (38-126); ANION GAP 9 (5-19); ASPARTATE AMINO TRANSFERASE 42 U/L (14-36); BILIRUBIN,DIRECT 0.3 mg/dL (0.0-0.4); BILIRUBIN,TOTAL 0.7 mg/dL (0.2-1.3); BLOOD UREA NITROGEN 13 mg/dL (7-20); CALCIUM 9.4 mg/dL (8.4-10.2); CARBON DIOXIDE 27 mmol/L (22-30); CHLORIDE 103 mmol/L (98-107); CREATINE KINASE 57 U/L (30-135); GLUCOSE 98 mg/dL (75-110); POTASSIUM 3.8 mmol/L (3.6-5.0); SODIUM 138.6 mmol/L (137-145); TOTAL PROTEIN 7.9 g/dL (6.3-8.2)
[2019-03-16 12:18] LABS: CREATINE KINASE MB 0.45 ng/mL (<4.55)
[2019-03-16 12:22] LABS: TROPONIN I < 0.012 ng/mL
[2019-03-16 12:34] LABS: APPEARANCE,URINE CLEAR; BILIRUBIN,URINE NEGATIVE (NEGATIVE); COLOR,URINE YELLOW; GLUCOSE, URINE NEGATIVE (NEGATIVE); KETONES,URINE TRACE mg/dL (NEGATIVE); LEUKOCYTE ESTERASE,URINE TRACE (NEGATIVE); NITRITE,URINE NEGATIVE (NEGATIVE); PROTEIN,URINE NEGATIVE (NEGATIVE); URINE SPECIFIC GRAVITY 1.027; UROBILINOGEN,URINE NEGATIVE mg/dL (<2.0)
[2019-03-16 12:39] LABS: ADD MANUAL MICROSCOPIC YES
[2019-03-16 12:46] LABS: RBC,URINE 0-1 /HPF
[2019-03-16 12:47] LABS: BACTERIA,URINE TRACE /HPF
--- NOTE | 2019-03-16 12:49 | RADIOLOGY REPORT (SQ) ---
EXAM DESCRIPTION: CHEST SINGLE VIEW COMPLETED DATE/TIME: 03/16/2019 12:10 pm REASON FOR STUDY: weakness, epigastric pain COMPARISON: None. NUMBER OF VIEWS: One view. TECHNIQUE: Single frontal radiographic view of the chest acquired. LIMITATIONS: None. FINDINGS: LUNGS AND PLEURA: No opacities, masses or pneumothorax. No pleural effusion. MEDIASTINUM AND HILAR STRUCTURES: No masses. Contour normal. HEART AND VASCULAR STRUCTURES: Heart normal in size. Normal vasculature. BONES: No acute findings. HARDWARE: None in the chest. OTHER: No other significant finding. IMPRESSION: NO SIGNIFICANT RADIOGRAPHIC FINDING IN THE CHEST. TECHNICAL DOCUMENTATION: JOB ID: [id number] [facility]- All Rights Reserved Reading location - IP/workstation name: [email or web address]
--- NOTE | 2019-03-16 13:44 | EKG REPORT ---
SEVERITY:- NORMAL ECG - SINUS RHYTHM : Confirmed by: Sterling Albert MD 16-Mar-2019 13:43:08
--- NOTE | 2019-03-16 14:47 | RADIOLOGY REPORT (SQ) ---
EXAM DESCRIPTION: CT ABD/PELVIS WITH IV ORAL COMPLETED DATE/TIME: 03/16/2019 2:36 pm REASON FOR STUDY: epig pain, +vomit, hx of gastric ulcers, low H H COMPARISON: None. TECHNIQUE: CT scan of the abdomen and pelvis performed with intravenous and oral contrast using reji erin scanning technique with dynamic intravenous contrast injection. Images reviewed with lung, soft t issue, and bone windows. Reconstructed coronal and sagittal MPR images reviewed. Delayed images for e valuation of the urinary system also acquired. All images stored on PACS. All CT scanners at this facility use dose modulation, iterative reconstruction, and/or weight based d osing when appropriate to reduce radiation dose to as low as reasonably achievable (ALARA). [facility]: Dose Right [facility]: CareDose [facility]: Dose Right [facility]: Teradose 4D [facility]: [employer] CONTRAST TYPE AND DOSE: contrast/concentration: Isovue 350.00 mg/ml; Total Contrast Delivered: 77.0 ml; Total Saline Delivered: 36.7 ml RENAL FUNCTION: GFR > 60. RADIATION DOSE: CT Rad equipment meets quality standard of care and radiation dose reduction techniq ues were employed. CTDIvol: 7.5 - 10.5 mGy. DLP: 960 mGy-cm. . LIMITATIONS: None. FINDINGS: LOWER CHEST: No significant findings. No nodules or infiltrates. LIVER: Normal size. No masses. No dilated ducts. SPLEEN: Normal size. No focal lesions. PANCREAS: No masses. No significant calcifications. No adjacent inflammation or peripancreatic fluid collections. Pancreatic duct not dilated. GALLBLADDER: No identified stones by CT criteria. No inflammatory changes to suggest cholecystitis. ADRENAL GLANDS: No significant masses or asymmetry. RIGHT KIDNEY AND URETER: No solid masses. No significant calcifications. No hydronephrosis or hyd roureter. LEFT KIDNEY AND URETER: No solid masses. No significant calcifications. No hydronephrosis or hydr oureter. AORTA AND VESSELS: No aneurysm. No dissection. Renal arteries, SMA, celiac without stenosis. RETROPERITONEUM: No retroperitoneal adenopathy, hemorrhage or masses. BOWEL AND PERITONEAL CAVITY: Prior gastric bypass. No obstruction. No visualized masses. No free flu id. No inflammatory changes or thickening of bowel wall. APPENDIX: Normal. PELVIS: No significant masses. Normal bladder. No free fluid. ABDOMINAL WALL: No masses. No hernias. BONES: No significant or acute findings. OTHER: No other significant finding. IMPRESSION: Prior gastric bypass. No acute findings. TECHNICAL DOCUMENTATION: JOB ID: [id number] Quality ID # [id number]: Final reports with documentation of one or more dose reduction techniques (e.g., Au tomated exposure control, adjustment of the mA and/or kV according to patient size, use of iterative reconstruction technique) 2010 [employer]- All Rights Reserved Reading location - IP/workstation name: [email or web address]
[2019-03-16 18:12] LABS: ABSOLUTE BASOPHILS # (AUTO) 0.2 10^3/uL (0.0-0.2); ABSOLUTE EOSINOPHILS # (AUTO) 0.1 10^3/uL (0.0-0.6); ABSOLUTE LYMPHOCYTES (AUTO) 2.3 10^3/uL (0.5-4.7); ABSOLUTE MONOCYTES (AUTO) 0.6 10^3/uL (0.1-1.4); ABSOLUTE NEUT (AUTO) 4.8 10^3/uL (1.7-8.2); BASOPHILS % (AUTO) 2.5 % (0-2); LYMPHOCYTES % (AUTO) 28.7 % (13-45); MEAN CORPUSCULAR HEMOGLOBIN 16.8 pg (27.0-33.4); MEAN CORPUSCULAR HGB CONC 28.6 g/dL (32.0-36.0); MEAN CORPUSCULAR VOLUME 59 fl (80-97); MONOCYTES % (AUTO) 7.7 % (3-13); PLATELET COUNT 702 10^3/uL (150-450); RED BLOOD COUNT 4.76 10^6/uL (3.72-5.28); RED CELL DISTRIBUTION WIDTH 20.6 % (11.5-14.0); SEGMENTED NEUTROPHILS % (AUTO) 60.1 % (42-78); TOTAL CELLS COUNTED % (AUTO) 100 %; WHITE BLOOD COUNT 7.9 10^3/uL (4.0-10.5)
[2019-03-16 18:39] LABS: ANISOCYTOSIS 2+; BURR CELLS 2+; HYPOCHROMASIA 4+; OVALOCYTES 2+; PLATELET COMMENT INCREASED; POIKILOCYTOSIS 2+; TEAR DROP CELLS SLIGHT
[2019-03-16] MEDS ORDERED: PANTOPRAZOLE SODIUM 40 MG VIAL IV ONE (19:34)
[2019-03-16] MEDS ORDERED: ONDANSETRON HCL INJ/PF 4 MG/2 ML SDV IV ONE ×2 (19:34→22:00)
[2019-03-16] MEDS ORDERED: MORPHINE SULFATE 10 MG/ML INJ IV ONE (19:34)
--- NOTE | 2019-03-16 19:42 | ER Document Report ---
ED General - General Chief Complaint: Abnormal Lab Results Stated Complaint: ABNORMAL LABS Time Seen by Provider: 03/16/19 11:01 Primary Care Provider: GEORGI RIVERO MD [NO LOCAL MD] - Follow up tomorrow Mode of Arrival: Ambulatory Information source: Patient Notes: 44-year-old female with h/o gastric ulcers, chronic abdominal pain, vomiting presents to the ED for evaluation of weakness, epigastric abd pain, jyoti umbilical abd pain, slight chest heaviness, vomiting with recent hx of low H&H. Patient was sent by primary care provider, Dr. Rivero, this morning and advised to come to the emergency room due to concern of her CBC. Hemoglobin was 7.7, hematocrit was 25.8. she was evaluated in the ER approximately 2 days ago in the ER for anemia, was advised to follow-up with primary care provider to monitor trends and H&H, did not need a blood transfusion at that time. Patient reports she has a history of gastric ulcers in the past, reports she does vomit, denies coffee-ground emesis, denies any black tarry stools. Last BM was yesterday. Patient reports she recently had abdominal surgery in August for gastric ulcers at [facility], does not have any medical records with her. Patient denies being on a PPI. Patient states she is advised by a small craft operator to not take a PPI. Denies fevers, chills, chest pain,palpitations, shortness of breath, dyspnea, nausea, diarrhea, hematuria,blurred vision,LH, dizziness, syncope, headaches. TRAVEL OUTSIDE OF THE [place] IN LAST 30 DAYS: No - HPI Onset: Other Onset/Duration: Gradual, Persistent - Related Data Allergies/Adverse Reactions: lidocaine Allergy (Verified 03/16/19 10:48) tetanus immune globulin Allergy (Verified 03/16/19 10:48) Past Medical History - Social History Smoking Status: Never Smoker Frequency of alcohol use: None Drug Abuse: None Family History: Reviewed & Not Pertinent Patient has suicidal ideation: No Patient has homicidal ideation: No - Past Medical History Cardiac Medical History: Reports: Hx Hypercholesterolemia, Hx Hypertension Endocrine Medical History: Reports: Hx Diabetes Mellitus Type 2 - borderline Renal/ Medical History: Denies: Hx Peritoneal Dialysis Past Surgical History: Reports: Hx Abdominal Surgery - gastric bypass, Hx Section, Hx Gastric Bypass Surgery, Hx Gynecologic Surgery - d/c, Hx Hysterectomy, Hx Orthopedic Surgery - left elbow tendon repair, Hx Tonsillectomy - Immunizations Immunizations up to date: Yes Hx Diphtheria, Pertussis, Tetanus Vaccination: Yes Physical Exam - Vital signs Vitals: Temp Pulse Resp BP Pulse Ox 97.8 F 87 18 143/80 H 100 03/16/19 10:59 03/16/19 10:59 03/16/19 10:59 03/16/19 10:59 03/16/19 10:59 - Notes Notes: PHYSICAL EXAMINATION: GENERAL: Well-appearing, well-nourished and in no acute distress. HEAD: Atraumatic, normocephalic. EYES: Pupils equal round and reactive to light, extraocular movements intact, conjunctiva are normal. ENT: Nares patent, oropharynx clear without exudates. Moist mucous membranes. NECK: Normal range of motion, supple without lymphadenopathy LUNGS: Breath sounds clear to auscultation bilaterally and equal. No wheezes rales or rhonchi. HEART: Regular rate and rhythm without murmurs ABDOMEN: Pain with palpation to the epigastrium and right upper quadrant, no guarding, no rebound. No masses appreciated. Female rectal: Small external hemorrhoid, brown stool, occult blood negative. Musculoskeletal: Normal range of motion, no pitting or edema. No cyanosis. NEUROLOGICAL: Cranial nerves grossly intact. Normal speech, normal gait. Normal sensory, motor exams PSYCH: Normal mood, normal affect. SKIN: Warm, Dry, normal turgor, no rashes or lesions noted. Course - Re-evaluation Re-evalutation: Laboratory 03/16/19 03/16/19 03/16/19 11:25 11:25 11:25 WBC 7.9 RBC 4.76 Hgb 8.0 L Hct 28.0 L MCV 59 L MCH 16.8 L MCHC 28.6 L RDW 20.6 H Plt Count 702 H Seg Neutrophils % 60.1 Lymphocytes % 28.7 Monocytes % 7.7 Eosinophils % 1.0 Basophils % 2.5 H Absolute Neutrophils 4.8 Absolute Lymphocytes 2.3 Absolute Monocytes 0.6 Absolute Eosinophils 0.1 Absolute Basophils 0.2 Platelet Comment INCREASED Hypochromasia 4+ Poikilocytosis 2+ Anisocytosis 2+ Microcytosis 4+ Tear Drop Cells SLIGHT Ovalocytes 2+ Kailey Cells 2+ Sodium 138.6 Potassium 3.8 Chloride 103 Carbon Dioxide 27 Anion Gap 9 BUN 13 Creatinine 0.62 Est GFR ( Amer) > 60 Est GFR (Non-Af Amer) > 60 Glucose 98 Calcium 9.4 Total Bilirubin 0.7 Direct Bilirubin 0.3 Neonat Total Bilirubin Not Reportable Neonat Direct Bilirubin Not Reportable Neonat Indirect Bili Not Reportable AST 42 H ALT 18 Alkaline Phosphatase 78 Creatine Kinase 57 CK-MB (CK-2) 0.45 Troponin I < 0.012 Total Protein 7.9 Albumin 4.6 Lipase Urine Color Urine Appearance Urine pH Ur Specific [employer] Mdl Urine Protein Urine Glucose (UA) Urine Ketones Urine Blood Urine Nitrite Urine Bilirubin Urine Urobilinogen Ur Leukocyte Esterase Urine RBC Ur Squamous Epith Cells Urine Bacteria Urine Mucus Urine Ascorbic Acid Stool Occult Blood POC Stool Occult Blood Blood Type Antibody Screen 03/16/19 03/16/19 03/16/19 11:25 12:06 12:06 WBC RBC Hgb Hct MCV MCH MCHC RDW Plt Count Seg Neutrophils % Lymphocytes % Monocytes % Eosinophils % Basophils % Absolute Neutrophils Absolute Lymphocytes Absolute Monocytes Absolute Eosinophils Absolute Basophils Platelet Comment Hypochromasia Poikilocytosis Anisocytosis Microcytosis Tear Drop Cells Ovalocytes Kailey Cells Sodium Potassium Chloride Carbon Dioxide Anion Gap BUN Creatinine Est GFR ( Amer) Est GFR (Non-Af Amer) Glucose Calcium Total Bilirubin Direct Bilirubin Neonat Total Bilirubin Neonat Direct Bilirubin Neonat Indirect Bili AST ALT Alkaline Phosphatase Creatine Kinase CK-MB (CK-2) Troponin I Total Protein Albumin Lipase 45.6 Urine Color YELLOW Urine Appearance CLEAR Urine pH 5.0 Ur Specific [employer] Mdl 1.027 Urine Protein NEGATIVE Urine Glucose (UA) NEGATIVE Urine Ketones TRACE H Urine Blood NEGATIVE Urine Nitrite NEGATIVE Urine Bilirubin NEGATIVE Urine Urobilinogen NEGATIVE Ur Leukocyte Esterase TRACE H Urine RBC 0-1 Ur Squamous Epith Cells RARE Urine Bacteria TRACE Urine Mucus 4+ Urine Ascorbic Acid NEGATIVE Stool Occult Blood POC Stool Occult Blood Blood Type O POSITIVE Antibody Screen NEGATIVE 03/16/19 03/16/19 16:20 19:39 WBC RBC Hgb Hct MCV MCH MCHC RDW Plt Count Seg Neutrophils % Lymphocytes % Monocytes % Eosinophils % Basophils % Absolute Neutrophils Absolute Lymphocytes Absolute Monocytes Absolute Eosinophils Absolute Basophils Platelet Comment Hypochromasia Poikilocytosis Anisocytosis Microcytosis Tear Drop Cells Ovalocytes [place] Cells Sodium Potassium Chloride Carbon Dioxide Anion Gap BUN Creatinine Est GFR ( Amer) Est GFR (Non-Af Amer) Glucose Calcium Total Bilirubin Direct Bilirubin Neonat Total Bilirubin Neonat Direct Bilirubin Neonat Indirect Bili AST ALT Alkaline Phosphatase Creatine Kinase CK-MB (CK-2) Troponin I Total Protein Albumin Lipase Urine Color Urine Appearance Urine pH Ur Specific [employer] Mdl Urine Protein Urine Glucose (UA) Urine Ketones Urine Blood Urine Nitrite Urine Bilirubin Urine Urobilinogen Ur Leukocyte Esterase Urine RBC Ur Squamous Epith Cells Urine Bacteria Urine Mucus Urine Ascorbic Acid Stool Occult Blood POSITIVE POC Stool Occult Blood NEGATIVE Blood Type Antibody Screen 03/16/19 20:36 Patient reevaluated after receiving morphine, Zofran and she is smiling and giggling and reports improvement of her pain. Awaiting right upper quadrant ultrasound. 03/16/19 21:13 Spoke to lab after reviewing the patient's laboratory findings due to to conflicting occult stool results. certified technician specialist states that this is a mistake on there and as far as reporting. They believe that the patient's stool was mislabeled, and that the positive result belongs to another patient. I performed the patient's rectal exam which showed brown stool which was occult blood negative. Checked with the patient who states no one else performed a rectal exam on her nor did she provide a stool sample to her primary care physician. 03/16/19 21:35 03/16/19 21:38 Patient reevaluated and is resting comfortably. 03/16/19 22:05 Patient tolerating p.o. 03/16/19 22:06 Patient was evaluated and treated as appropriate for the patient's presenting symptoms and complaint, with consideration of any critical or life threatening conditions that may be associated with their obtained history and exam as noted above. All results were discussed with patient. Patient provided the opportunity to ask questions, and express concerns. Patient was educated on treatments based on their presumed diagnosis as noted above. At this time we will discharge the patient with return precautions and follow-up recommendations. Verbal discharge instructions given a the bedside. Medication warnings reviewed. Patient is in agreement with this plan and has verbalized understanding of return precautions. After careful consideration I feel that that patient can be safely discharged from the emergency department, they were advised to followup with a primary care physician in 2-3 days. Dictation on this chart was performed using voice recognition software and may result in unintended grammatical, spelling, syntax or errors. - Vital Signs Vital signs: Temp Pulse Resp BP Pulse Ox 97.8 F 87 18 143/80 H 100 03/16/19 10:59 03/16/19 10:59 03/16/19 10:59 03/16/19 10:59 03/16/19 10:59 - Laboratory Result Diagrams: 03/16/19 11:25 03/16/19 11:25 Laboratory results interpreted by me: 03/16/19 03/16/19 03/16/19 11:25 11:25 12:06 Hgb 8.0 L Hct 28.0 L MCV 59 L MCH 16.8 L MCHC 28.6 L RDW 20.6 H Plt Count 702 H Basophils % 2.5 H AST 42 H Urine Ketones TRACE H Ur Leukocyte Esterase TRACE H - Diagnostic Test Radiology reviewed: Image reviewed, Reports reviewed Discharge - Discharge Clinical Impression: History of gastric bypass, Chronic abdominal pain, Chronic nausea vomiting, Gallbladder polyp, Epigastric abdominal pain Anemia Qualifiers: Anemia type: unspecified type Qualified Code(s): D64.9 - Anemia, unspecified Condition: Good Disposition: HOME, SELF-CARE Instructions: Abdominal Pain ([facility]), Anemia ([facility]), Nausea or Vomiting, Nonspecific ([facility]) Additional Instructions: Your ultrasound showed a gallbladder polyp. These are usually benign but will require follow-up. You have been provided copies of all of your imaging obtained today, please bring this to your physician. Follow up with your [id number] hours for further care or return to the ED IMMEDIATELY if symptoms worsen or you have any concerns. If you cannot afford to follow up with your primary care physician a list of low cost clinics have been provided at the end of your discharge papers as well. Most prescribed medications have multiple side effects. The safest thing to do is when filling your prescription speak to your pharmacist regarding possible interactions with your normal home medications and over the counter medications such as Ibuprofen, Tylenol, Benadryl. If you experience any symptoms that cause you discomfort or concern you should discontinue the medication immediately and return to the emergency room or call your primary care physician. Prescriptions: Ondansetron HCl [Zofran 4 mg Tablet] 1 - 2 tab PO Q4H PRN #20 tablet PRN Reason: Sucralfate [Carafate 1 gm Tablet] 1 gm PO ACHS #30 tablet Forms: Elevated Blood Pressure Referrals: GEORGI RIVERO MD [NO LOCAL MD] - Follow up tomorrow
[2019-03-16 20:19] LABS: LIPASE 45.6 U/L (23-300)
--- NOTE | 2019-03-16 21:47 | RADIOLOGY REPORT (SQ) ---
US ABDOMEN LIMITED EXAM DATE: 03/16/2019 7:34 PM CDT HISTORY: Right upper quadrant pain. COMPARISON: None. TECHNIQUE: Grayscale and color Doppler imaging of the right upper quadrant was performed. FINDINGS: The liver has normal echotexture without focal lesion identified. The main portal vein has normal hepatopetal flow. The gallbladder is distended with a 7 mm nonmobile nonshadowing polyp. No shadowing gallstones are identified. No pericholecystic fluid or gallbladder wall thickening. The common bile duct measures 1 cm. The pancreas is not well-visualized due to overlying bowel gas. No hydronephrosis or shadowing renal stones are identified. The right kidney is normal in size. The visualized portions of the IVC and aorta are patent. IMPRESSION: No shadowing gallstones or inflammatory changes. Likely 7 mm gallbladder polyp. Mildly dilated CBD, nonspecific.
[2019-03-16 22:31] VITALS: BP 127/69
== END 2019-03-16 22:31 | disposition home or self-care (01) ==
LOC: ER 10:46
DX: K82.4 Cholesterolosis of gallbladder (principal); D64.9 Anemia, unspecified; R53.1 Weakness; R10.13 Epigastric pain; R10.33 Periumbilical pain; G89.29 Other chronic pain; R07.9 Chest pain, unspecified; R11.10 Vomiting, unspecified; I10 Essential (primary) hypertension; E11.9 Type 2 diabetes mellitus without complications
CPT/HCPCS: 93005; 96376; 99284; 96374; 96375; 86900; 86901; 36415; 82553; 86850; 82550; 83690; 82272; 80053; 81001; 84484; 71045; 76705; 74177; 93010; J2270; S0164; J2405

== ENCOUNTER → 2019-03-16 | Outpatient (CLI) | payer SELFPAY ==
[2019-03-16 08:41] LABS: ABSOLUTE EOSINOPHILS # (AUTO) 0.1 10^3/uL (0.0-0.6); ABSOLUTE LYMPHOCYTES (AUTO) 2.3 10^3/uL (0.5-4.7); ABSOLUTE MONOCYTES (AUTO) 0.6 10^3/uL (0.1-1.4); ABSOLUTE NEUT (AUTO) 5.8 10^3/uL (1.7-8.2); BASOPHILS % (AUTO) 0.4 % (0-2); EOSINOPHILS % (AUTO) 0.9 % (0-6); HEMATOCRIT 25.8 % (36.0-47.0); LYMPHOCYTES % (AUTO) 26.4 % (13-45); MEAN CORPUSCULAR VOLUME 57 fl (80-97); MONOCYTES % (AUTO) 6.7 % (3-13); PLATELET COUNT 669 10^3/uL (150-450); RED BLOOD COUNT 4.56 10^6/uL (3.72-5.28); SEGMENTED NEUTROPHILS % (AUTO) 65.6 % (42-78); TOTAL CELLS COUNTED % (AUTO) 100 %; WHITE BLOOD COUNT 8.9 10^3/uL (4.0-10.5)
[2019-03-16 09:28] LABS: HEMOGLOBIN 7.7 g/dL (12.0-15.5)
[2019-03-16 09:56] LABS: HYPOCHROMASIA 3+
[2019-03-16 09:57] LABS: ANISOCYTOSIS 3+; OVALOCYTES 1+; PLATELET COMMENT INCREASED; POIKILOCYTOSIS 1+; SCHISTOCYTES 1+; TARGET CELLS SLIGHT
== END ==
LOC: LAB 08:29
PROVIDERS: ATTEND Emergency Medicine
DX: D64.9 Anemia, unspecified (principal); R10.9 Unspecified abdominal pain
CPT/HCPCS: 36415; 85025

== ENCOUNTER → 2019-03-30 | Outpatient (CLI) | payer SELFPAY ==
[2019-03-30 07:55] LABS: ABSOLUTE BASOPHILS # (AUTO) 0.1 10^3/uL (0.0-0.2); ABSOLUTE EOSINOPHILS # (AUTO) 0.1 10^3/uL (0.0-0.6); ABSOLUTE LYMPHOCYTES (AUTO) 1.7 10^3/uL (0.5-4.7); ABSOLUTE MONOCYTES (AUTO) 0.4 10^3/uL (0.1-1.4); ABSOLUTE NEUT (AUTO) 3.3 10^3/uL (1.7-8.2); ABSOLUTE RETICS # 0.112 10^6/uL (0.028-0.122); BASOPHILS % (AUTO) 1.5 % (0-2); EOSINOPHILS % (AUTO) 1.1 % (0-6); HEMATOCRIT 25.1 % (36.0-47.0); LYMPHOCYTES % (AUTO) 30.8 % (13-45); MEAN CORPUSCULAR HEMOGLOBIN 17.1 pg (27.0-33.4); MEAN CORPUSCULAR HGB CONC 29.4 g/dL (32.0-36.0); MEAN CORPUSCULAR VOLUME 58 fl (80-97); MONOCYTES % (AUTO) 6.4 % (3-13); PLATELET COUNT 398 10^3/uL (150-450); RED BLOOD COUNT 4.33 10^6/uL (3.72-5.28); RED CELL DISTRIBUTION WIDTH 21.7 % (11.5-14.0); RETICULOCYTE COUNT (AUTO) 2.59 % (0.66-2.85); SEGMENTED NEUTROPHILS % (AUTO) 60.2 % (42-78); TOTAL CELLS COUNTED % (AUTO) 100 %; WHITE BLOOD COUNT 5.4 10^3/uL (4.0-10.5)
[2019-03-30 08:25] LABS: ANISOCYTOSIS 3+; HYPOCHROMASIA 3+; POIKILOCYTOSIS 2+; POLYCHROMASIA SLIGHT
[2019-03-30 08:26] LABS: OVALOCYTES 1+; PLATELET COMMENT ADEQUATE; SCHISTOCYTES SLIGHT; TEAR DROP CELLS 1+
[2019-03-30 08:48] LABS: HEMOGLOBIN 7.4 g/dL (12.0-15.5)
== END ==
LOC: LAB 07:26
DX: D64.9 Anemia, unspecified (principal)
CPT/HCPCS: 36415; 85025; 85045

== ENCOUNTER → 2019-04-14 | Outpatient (CLI) | payer OTHER ==
[2019-04-14 11:17] LABS: ABSOLUTE EOSINOPHILS # (AUTO) 0.1 10^3/uL (0.0-0.6); ABSOLUTE LYMPHOCYTES (AUTO) 2.1 10^3/uL (0.5-4.7); ABSOLUTE MONOCYTES (AUTO) 0.5 10^3/uL (0.1-1.4); ABSOLUTE NEUT (AUTO) 2.9 10^3/uL (1.7-8.2); BASOPHILS % (AUTO) 0.6 % (0-2); EOSINOPHILS % (AUTO) 1.5 % (0-6); HEMATOCRIT 34.6 % (36.0-47.0); HEMOGLOBIN 10.5 g/dL (12.0-15.5); LYMPHOCYTES % (AUTO) 37.2 % (13-45); MEAN CORPUSCULAR HEMOGLOBIN 20.5 pg (27.0-33.4); MEAN CORPUSCULAR HGB CONC 30.3 g/dL (32.0-36.0); MONOCYTES % (AUTO) 8.6 % (3-13); PLATELET COUNT 509 10^3/uL (150-450); RED BLOOD COUNT 5.13 10^6/uL (3.72-5.28); RED CELL DISTRIBUTION WIDTH 33.8 % (11.5-14.0); SEGMENTED NEUTROPHILS % (AUTO) 52.1 % (42-78); TOTAL CELLS COUNTED % (AUTO) 100 %; WHITE BLOOD COUNT 5.6 10^3/uL (4.0-10.5)
[2019-04-14 11:40] LABS: ALBUMIN 4.4 g/dL (3.5-5.0); ALKALINE PHOSPHATASE 60 U/L (38-126); ANION GAP 10 (5-19); ASPARTATE AMINO TRANSFERASE 26 U/L (14-36); BILIRUBIN,DIRECT 0.1 mg/dL (0.0-0.4); BILIRUBIN,TOTAL 0.6 mg/dL (0.2-1.3); BLOOD UREA NITROGEN 12 mg/dL (7-20); CALCIUM 9.7 mg/dL (8.4-10.2); CARBON DIOXIDE 25 mmol/L (22-30); CHLORIDE 105 mmol/L (98-107); GLUCOSE 79 mg/dL (75-110); POTASSIUM 4.1 mmol/L (3.6-5.0)
[2019-04-14 11:55] LABS: MEAN CORPUSCULAR VOLUME 68 fl (80-97)
[2019-04-14 12:12] LABS: ANISOCYTOSIS 4+; HYPOCHROMASIA 2+; POIKILOCYTOSIS 1+; POLYCHROMASIA SLIGHT
[2019-04-14 12:13] LABS: OVALOCYTES 1+; PLATELET COMMENT INCREASED; TARGET CELLS SLIGHT; TEAR DROP CELLS 1+
== END ==
LOC: LAB 10:52
DX: Z00.00 Encounter for general adult medical examination without abnormal findings (principal)
CPT/HCPCS: 36415; 80053; 85025

== ENCOUNTER 2019-04-28 09:04 | Emergency (ER) | payer SELFPAY ==
--- NOTE | 2019-04-28 09:27 | ER Document Report ---
ED Medical Screen (RME) - General Chief Complaint: Vaginal Bleeding Stated Complaint: HEAVY VAGINAL BLEEDING Time Seen by Provider: 04/28/19 09:21 Mode of Arrival: Ambulatory Information source: Patient Notes: Patient presents complaining of vaginal bleeding for the past 26 days. Patient reports heavy irregular periods. Patient has required a blood transfusion recently for this. Patient has not followed up with BUSINESS PROCESS EXPERT for this problem just yet. Patient saw her primary doctor who advised her to come here for an ultrasound. I have greeted and performed a rapid initial assessment of this patient. A comprehensive ED assessment and evaluation of the patient, analysis of test results and completion of the medical decision making process will be conducted by additional ED providers. TRAVEL OUTSIDE OF THE [place] IN LAST 30 DAYS: No - Related Data Allergies/Adverse Reactions: lidocaine Allergy (Verified 04/28/19 09:06) tetanus immune globulin Allergy (Verified 04/28/19 09:06) Past Medical History - Past Medical History Cardiac Medical History: Reports: Hx Hypercholesterolemia, Hx Hypertension Endocrine Medical History: Reports: Hx Diabetes Mellitus Type 2 - borderline Renal/ Medical History: Denies: Hx Peritoneal Dialysis Past Surgical History: Reports: Hx Abdominal Surgery - gastric bypass, Hx Section, Hx Gastric Bypass Surgery, Hx Gynecologic Surgery - d/c, Hx Hysterectomy, Hx Orthopedic Surgery - left elbow tendon repair, Hx Tonsillectomy - Immunizations Immunizations up to date: Yes Hx Diphtheria, Pertussis, Tetanus Vaccination: Yes Physical Exam - Vital signs Vitals: Temp Pulse Resp BP Pulse Ox 97.9 F 85 16 128/76 H 100 04/28/19 09:09 04/28/19 09:09 04/28/19 09:09 04/28/19 09:09 04/28/19 09:09 - Abdominal Tenderness: Tender - Lower pelvic Course - Vital Signs Vital signs: Temp Pulse Resp BP Pulse Ox 97.9 F 85 16 128/76 H 100 04/28/19 09:09 04/28/19 09:09 04/28/19 09:09 04/28/19 09:09 04/28/19 09:09
--- NOTE | 2019-04-28 09:49 | ER Document Report ---
ED General - General Chief Complaint: Vaginal Bleeding Stated Complaint: HEAVY VAGINAL BLEEDING Time Seen by Provider: 04/28/19 09:21 Primary Care Provider: [facility] [Provider Group] - Follow up as needed GEORGI WASHINGTON MD [Primary Care Provider] - Follow up in 3-5 days Mode of Arrival: Ambulatory Notes: Patient is a 44-year-old female who presents to the emergency department with a chief complaint of heavy vaginal bleeding. She has been bleeding for the past 23 days and soaking 6 pads a day since then. Patient was seen at the [facility] and was sent to the emergency department for further evaluation. Patient states that the pain feels like a cramping menstrual cycle pain, but states that she feels used to it and it is not that bad. Patient has history of a blood transfusion and iron transfusion in the past. She is currently taking trazodone for sleep. Denies any other past medical history. TRAVEL OUTSIDE OF THE [place] IN LAST 30 DAYS: No - Related Data Allergies/Adverse Reactions: lidocaine Allergy (Verified 04/28/19 09:06) tetanus immune globulin Allergy (Verified 04/28/19 09:06) Past Medical History - General Information source: Patient - Social History Smoking Status: Never Smoker Frequency of alcohol use: None Drug Abuse: None Family History: Reviewed & Not Pertinent Patient has suicidal ideation: No Patient has homicidal ideation: No - Past Medical History Cardiac Medical History: Reports: Hx Hypercholesterolemia, Hx Hypertension Endocrine Medical History: Reports: Hx Diabetes Mellitus Type 2 - borderline Renal/ Medical History: Denies: Hx Peritoneal Dialysis Past Surgical History: Reports: Hx Abdominal Surgery - gastric bypass, Hx Section, Hx Gastric Bypass Surgery, Hx Gynecologic Surgery - d/c, Hx Hysterectomy, Hx Orthopedic Surgery - left elbow tendon repair, Hx Tonsillectomy - Immunizations Immunizations up to date: Yes Hx Diphtheria, Pertussis, Tetanus Vaccination: Yes Review of Systems - Review of Systems Notes: REVIEW OF SYSTEMS: CONSTITUTIONAL : Denies recent illness. Denies recent unintentional weight loss. Denies fever, chills, or sweats. EENT: Denies eye, ear, throat, or mouth pain, discharge, or symptoms. Denies nasal or sinus congestion. CARDIOVASCULAR: Denies chest pain. RESPIRATORY: Denies shortness of breath, cough, congestion, difficulty breathing, or wheezing. GASTROINTESTINAL: Denies nausea, vomiting, and diarrhea. Denies abdominal pain. Denies constipation. Last BM: GENITOURINARY: Denies difficulty urinating, burning, blood in urine, urgency or frequency. FEMALE GENITOURINARY: See HPI MUSCULOSKELETAL: Denies neck and back pain. Denies joint pain or swelling. SKIN: Denies rash, itchiness, or lesions HEMATOLOGIC : Denies easy bruising or bleeding. LYMPHATIC: Denies swollen, painful, enlarged glands. NEUROLOGICAL: Denies no numbness or tingling denies weakness. Denies headache. Denies altered mental status. Denies alteration in speech. PSYCHIATRIC: Denies stress, anxiety, alteration in sleep patterns, or depression. All other systems reviewed and negative. Physical Exam - Vital signs Vitals: Temp Pulse Resp BP Pulse Ox 97.9 F 85 16 128/76 H 100 04/28/19 09:09 04/28/19 09:09 04/28/19 09:09 04/28/19 09:09 04/28/19 09:09 - Notes Notes: PHYSICAL EXAMINATION: GENERAL: Appears well, healthy, well-nourished, no acute distress. HEAD: Normocephalic, atraumatic. EYES: PERRL, conjunctiva normal, all extraocular movements intact, sclera nonicteric ENT: Moist, mildly pale mucous membranes. NECK: Supple, no noticeable swelling, redness, rash. Normal range of motion. LUNGS: Equal breath sounds bilaterally and clear to auscultation. No wheezes rales or rhonchi. CARDIOVASCULAR: S1-S2, regular rate, regular rhythm. Radial pulses 2+, normal. ABDOMEN: Normoactive bowel sounds. Soft, nontender, no guarding, no rebound tenderness, and no masses palpated. EXTREMITIES: Normal strength and range of motion, no pitting or edema. No cyanosis. NEUROLOGICAL: Moves all extremities upon command. Strength 5/5 in all extremities. PSYCH: Normal mood, normal affect. SKIN: Warm, dry. No rash, lesions, ulcerations noted. Normal skin turgor. Mildly pale. Course - Re-evaluation Re-evalutation: 04/28/19 12:47 Patient's hemoglobin is stable at 10.2 with hematocrit of 32.8. No transfusion needed at this time. Her hCG is negative. Transvaginal ultrasound does not show any abnormalities at this time. No lesions or fibrous tumors noted. There is good blood flow to both ovaries. I discussed the findings with the patient. I told her that she needs to follow-up with OB via outpatient basis. She states that her primary care provider is working with setting her up with [facility] for outpatient follow-up. I will try to get a hold of Dr. Weber before discharge. He was paged via the automatic nailing machine operator. 04/28/19 13:37 I still have not been able to get a hold of Dr. Weber. At this time, since the patient does not want any control, I will send her home and follow-up with DESIGN ENGINEERING INTERN. If Dr. Weber states that NuvaRing is safe, I will call the patient and order her prescription. Follow-up precautions were given. Verbal discharge instructions were given to the patient. They verbalized understanding. They are stable for discharge. 04/28/19 20:37 I was able to get a hold of Dr. Weber at this time. I asked him if NuvaRing would be appropriate since the patient does not want to be on oral control. He states that it might not help, but it would not hurt anything. I will call the patient and call in a prescription for NuvaRing. 04/29/19 09:45 I called the patient back and asked if she would still like to try the NuvaRing. She said yes. I called in a prescription for the NuvaRing to [facility]. - Vital Signs Vital signs: Temp Pulse Resp BP Pulse Ox 98.0 F 65 16 128/81 H 100 04/28/19 13:44 04/28/19 13:44 04/28/19 09:09 04/28/19 13:44 04/28/19 13:44 - Laboratory Result Diagrams: 04/28/19 09:40 Laboratory results interpreted by me: 04/28/19 09:40 Hgb 10.2 L Hct 32.8 L MCV 69 L MCH 21.3 L MCHC 31.0 L RDW 32.5 H Discharge - Discharge Clinical Impression: Vaginal bleeding Condition: Stable Disposition: HOME, SELF-CARE Additional Instructions: You are seen today in the emergency department for vaginal bleeding. Your labs are normal and you do not require a blood transfusion at this time. Your ultrasound was normal. Please follow-up with the DESIGN ENGINEERING INTER[facility] below or the OB your primary care provider is referring you to. If you get lightheaded, pass out, or have any symptoms that are worrisome to you, please return to the emergency department. Forms: Return to Work Referrals: GEORGI WASHINGTON MD [Primary Care Provider] - Follow up in 3-5 days [facility] [Provider Group] - Follow up as needed
[2019-04-28 10:11] LABS: ABSOLUTE EOSINOPHILS # (AUTO) 0.1 10^3/uL (0.0-0.6); ABSOLUTE LYMPHOCYTES (AUTO) 1.8 10^3/uL (0.5-4.7); ABSOLUTE MONOCYTES (AUTO) 0.3 10^3/uL (0.1-1.4); ABSOLUTE NEUT (AUTO) 3.1 10^3/uL (1.7-8.2); BASOPHILS % (AUTO) 0.8 % (0-2); EOSINOPHILS % (AUTO) 1.7 % (0-6); HEMATOCRIT 32.8 % (36.0-47.0); HEMOGLOBIN 10.2 g/dL (12.0-15.5); LYMPHOCYTES % (AUTO) 33.5 % (13-45); MEAN CORPUSCULAR HEMOGLOBIN 21.3 pg (27.0-33.4); MEAN CORPUSCULAR VOLUME 69 fl (80-97); MONOCYTES % (AUTO) 5.6 % (3-13); PLATELET COUNT 300 10^3/uL (150-450); RED BLOOD COUNT 4.78 10^6/uL (3.72-5.28); RED CELL DISTRIBUTION WIDTH 32.5 % (11.5-14.0); SEGMENTED NEUTROPHILS % (AUTO) 58.4 % (42-78); TOTAL CELLS COUNTED % (AUTO) 100 %; WHITE BLOOD COUNT 5.3 10^3/uL (4.0-10.5)
[2019-04-28 10:55] LABS: ANISOCYTOSIS 4+; HYPOCHROMASIA 2+; OVALOCYTES 2+; PLATELET COMMENT ADEQUATE; POIKILOCYTOSIS 2+; SCHISTOCYTES 1+; TEAR DROP CELLS 1+
--- NOTE | 2019-04-28 11:33 | RADIOLOGY REPORT (SQ) ---
EXAM DESCRIPTION: U/S NON OB PEL TV W/DOPPLER COMPLETED DATE/TIME: 04/28/2019 11:19 am REASON FOR STUDY: heavy vag bleeding COMPARISON: None. TECHNIQUE: Dynamic and static grayscale images acquired of the pelvis via transvaginal approach and recorded on PACS. Additional selected color Doppler and spectral images recorded. LIMITATIONS: None. FINDINGS: UTERUS: Contour normal. No mass. ENDOMETRIAL STRIPE: No focal or generalized thickening. No masses. CERVIX: Nabothian cysts. RIGHT OVARY AND DOPPLER: Normal size. No worrisome masses. Normal arterial vascular flow without evid ence for torsion. LEFT OVARY AND DOPPLER: Normal size. No worrisome masses. Normal arterial vascular flow without evide nce for torsion. FREE FLUID: None noted. OTHER: No other significant finding. IMPRESSION: NORMAL TRANSVAGINAL PELVIC ULTRASOUND. TECHNICAL DOCUMENTATION: JOB ID: [id number]- All Rights Reserved Rev-01/15 Reading location - IP/workstation name: [email or web address]
[2019-04-28 13:54] VITALS: BP 128/81
== END 2019-04-28 13:55 | disposition home or self-care (01) ==
LOC: ER 09:04
DX: N93.8 Other specified abnormal uterine and vaginal bleeding (principal); E78.00 Pure hypercholesterolemia, unspecified; I10 Essential (primary) hypertension; R73.03 Prediabetes; Z98.84 Bariatric surgery status; Z90.710 Acquired absence of both cervix and uterus
CPT/HCPCS: 36415; 76830; 84703; 85025; 93976; 99284